=== PATIENT | female | born 1955 | race Caucasian/White ===

== ENCOUNTER 2019-11-07 10:58 | Emergency (ER) | payer OTHER ==
[~2019-11-07] VITALS: Ht 157.5 cm; Wt 49.9 kg
[2019-11-07 11:00] VITALS: BP 118/68
[2019-11-07 11:22] VITALS: BP 118/68
== END 2019-11-07 11:22 | disposition home or self-care (01) ==
LOC: MED 10:58
DX: B34.9 Viral infection, unspecified (principal); E11.9 Type 2 diabetes mellitus without complications
CPT/HCPCS: 99283